=== PATIENT | male | born 1990 | race Two or more races ===

== ENCOUNTER 2016-10-19 23:30 | Emergency (ER) | payer OTHER ==
--- NOTE | 2016-10-20 00:12 | EDPHY ---
H & P Time Seen by Provider: 10/19/16 23:56 HPI/ROS: CHIEF COMPLAINT: medical clearance for prison HISTORY OF PRESENT ILLNESS: 25-year-old male presents to the emergency department with the [employer] for medical clearance for prison. The patient tells me that he has a cervical spine fracture and was seen at [facility] 2 or 3 weeks ago. 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 He denies any known trauma or injury since his fall was 3 weeks ago when he has a cervical spine fracture. Denies re-injury. Denies chest pain or difficulty breathing. Denies abdominal pain. Denies headache. Denies neck or back pain. Denies paresthesias or feelings of weakness in his upper lower extremities. REVIEW OF SYSTEMS: Constitutional: No fever, no chills. Eyes: No double or blurry vision. ENT: No sore throat. Respiratory: No cough, no shortness of breath. Cardiac: No chest pain. Gastrointestinal: No abdominal pain, vomiting or diarrhea. Genitourinary: No dysuria. Musculoskeletal: No neck or back pain. Skin: No rashes. Neurological: No headache. Past Medical/Surgical History: History of cervical spine fracture to 3 weeks ago seen at [facility] Social History: Single Smoking Status: Current every day smoker Physical Exam: General Appearance: Alert, no distress. Smells of alcohol. No visible signs of trauma to his head. Eyes: Pupils equal and round. Extraocular motions are all intact. ENT: Mouth: Mucous membranes moist. Respiratory: No wheezing, rhonchi, or rales, lungs are clear to auscultation. Cardiovascular: Regular rate and rhythm. Gastrointestinal: Abdomen is soft and nontender, no masses, no rebound or guarding, bowel sounds normal. Neurological: Alert and oriented x 3, cranial nerves II through XII grossly intact Skin: Warm and dry, no rashes. Musculoskeletal: Nontender to palpate along the cervical, thoracic or lumbar spine. Neck is supple. Extremities: Full range of motion and no peripheral edema. Normal and equal strength the upper and lower extremities bilaterally. Normal gait. Psychiatric: Patient is oriented X 3, there is no agitation. Allergies/Adverse Reactions: No Known Allergies Allergy (Unverified 04/07/13 13:27) Home Medications: Medication Instructions Recorded Miscellaneous Medical Supply [NO 1 ea MIS AD 04/07/13 HOME MEDS] Medical Decision Making Procedures: Rosebud J collar placed in the emergency department. This was examined post application in good placement with normal AU PAIR. ED Course/Re-evaluation: 25-year-old male presents to the emergency department for medical clearance for prison. Patient has a history of cervical records of this. The patient has no cervical spine tenderness. He has an otherwise normal. He has no visible collar given his history of cervical spine fracture. He was told he was supposed to see Neurosurgery. The prison nurse was contacted and the patient is fine to be discharged to the prison with a Rosebud J collar in place. I do not think imaging studies are necessary as patient reports no history of trauma. Departure - Departure Disposition: Home, Routine, Self-Care Clinical Impression: Medical clearance for prison, History of cervical spine fracture Instructions: Rosebud J Collar (ED), Neck Pain (ED) Additional Instructions: With your history of a cervical spine fracture, you should keep the collar and placed in until directed by your neurosurgeon. Who has been medically cleared for prison. Please keep the collar on until you see your neurosurgeon. Referrals: [facility] [Other] - As per Instructions
[2016-10-20 00:37] VITALS: BP 156/96; PULSE 101; RESP 18; TEMP 97.7; O2SAT 96
== END 2016-10-20 00:24 | disposition home or self-care (01) ==
DX: Z02.89 Encounter for other administrative examinations (principal); F17.200 Nicotine dependence, unspecified, uncomplicated; Z87.81 Personal history of (healed) traumatic fracture
CPT/HCPCS: L0174